=== PATIENT | female | born 1950 | race Caucasian/White ===

== ENCOUNTER 2019-03-17 08:09 | Day surgery (SDC) | payer OTHER ==
[~2019-03-17] VITALS: Ht 152.4 cm; Wt 116.2 kg
[2019-03-17] MEDS ORDERED: BLOOD PRESSURE MED (09:33)
[2019-03-17] MEDS ORDERED: AMLODIPINE (09:33)
[2019-03-17 09:39] VITALS: Ht 152.4 cm; Wt 116.2 kg
[2019-03-17 09:40] VITALS: BP 161/76; PULSE 62; RESP 18
--- NOTE | 2019-03-17 09:43 | PREAC ---
Date/Time of Note Date/Time of Note DATE: 03/17/19 TIME: 09:42 Anesthesia Eval and Record Evaluation Time Pre-Procedure Interview DATE: 03/17/19 TIME: 09:42 Age 68 Sex female NPO: 8 hrs Preoperative diagnosis DYSPHAGIA Planned procedure EGD Past Medical History Past Medical History: Includes Cardio: HTN Endo: Hypothyroid GI: Morbid obesity Surgery & Anesthesia Issues No known issue Meds Anticoagulation: No Beta Royer within 24 hr: No Reason Beta Royer not given: Pt. not on B-Royer Reported Medications [Blood Pressure Med] No Conflict Check 03/17/19 [Amlodipine] No Conflict Check 03/17/19 Meds reviewed: Yes Allergies Coded Allergies: No Known Allergy (Unverified , 03/17/19) Allergies Reviewed: Yes Labs/Studies Labs Reviewed: Reviewed by anesthesiologist test: N/A Pre-procedure Exam Airway: Adequate mouth opening, Adequate thyromental dist Mallampati: Mallampati II Teeth: Normal Lung: Normal Heart: Normal ASA Physical Status ASA physical status: 4 Emergency: None Planned Anesthetic General/MAC: MAC Planned Pain Management Parenteral pain med Pre-operative Attestations Prior to commencing anesthesia and surgery, the patient was re-evaluated, there was verification of: *The patient's identity *The results of appropriate recent lab work and preoperative vital signs *The above evaluation not changing prior to induction *Anesthetic plan, risk benefits, alternative and complications discussed with patient/family; questions answered; patient/family understands, accepts and wishes to proceed. Carlos Morelos M.D. Mar 17, 2019 09:43
[2019-03-17] MEDS ORDERED: PROPOFOL 40 ML ONE (09:44)
[2019-03-17] MEDS ORDERED: FENTAnyl 50 MCG/ML VIAL ONE (09:44)
[2019-03-17] MEDS ORDERED: LIDOCAINE 100 MG SYRINGE ONE (09:44)
--- NOTE | 2019-03-17 10:02 | PAC ---
Date/Time of Note Date/Time of Note DATE: 03/17/19 TIME: 10:02 Post-Anesthesia Notes Post-Anesthesia Note Last documented vital signs HR 76 RR 15 BP 176/74 T: 98 Activity: WNL Respiratory function: WNL Cardiovascular function: WNL Mental status: Baseline Pain reasonably controlled: Yes Hydration appropriate: Yes Nausea/Vomiting absent: Yes Carlos Morelos M.D. Mar 17, 2019 10:02
[2019-03-17 10:27] VITALS: BP 172/84; RESP 20
== END 2019-03-17 15:35 | disposition home or self-care (01) ==
LOC: GIL 08:09
PROVIDERS: ATTEND Internal Medicine Gastroenterology
DX: K29.50 Unspecified chronic gastritis without bleeding (principal); K20.8 Other esophagitis
CPT/HCPCS: 43239; 88305; 88312; J2001; J3010